=== PATIENT | female | born 1995 | race Native Hawaiian/Other Pacific Islander ===

== ENCOUNTER 2017-05-02 19:08 | Emergency (ER) | payer OTHER | END 2017-05-02 19:18 | disposition home or self-care (01) | LOC: ED 19:08 | DX: O46.90 Antepartum hemorrhage, unspecified, unspecified trimester (principal) | CPT/HCPCS: 99281 ==

== ENCOUNTER 2019-02-17 16:16 | Emergency (ER) | payer OTHER ==
[~2019-02-17] VITALS: Ht 167.6 cm; Wt 72.6 kg
[2019-02-17 17:15] VITALS: BP 140/83; TEMP 98
== END 2019-02-17 17:18 | disposition home or self-care (01) ==
LOC: ED 16:16
DX: L02.31 Cutaneous abscess of buttock (principal)
CPT/HCPCS: 96372; 99283; J0696; J1885